=== PATIENT | male | born 1975 | race Caucasian/White ===

== ENCOUNTER 2024-05-24 16:00 | Outpatient (CLI) | payer BC | END 2024-05-24 16:01 | disposition home or self-care (01) | LOC: SLEEPLAB 16:00 | PROVIDERS: ATTEND Physician Assistant Medical | DX: G47.33 Obstructive sleep apnea (adult) (pediatric) (principal); I10 Essential (primary) hypertension; K21.9 Gastro-esophageal reflux disease without esophagitis; G47.00 Insomnia, unspecified; R06.83 Snoring | CPT/HCPCS: 95800 ==